=== PATIENT | female | born 1990 | race Caucasian/White ===

== ENCOUNTER 2022-05-13 13:05 | Emergency (ER) | payer SELFPAY ==
[2022-05-13 13:10] VITALS: BP 129/88; PULSE 92; RESP 16; TEMP 36.2; O2SAT 100
--- NOTE | 2022-05-13 13:21 | PC.NURSE ---
Pt and mother to nurses station stating they are leaving. Pt does not want to wait and would like to go to another facility for evaluation. Pt ambulatory out of ED with steady gait. No acute distress noted.
== END 2022-05-13 13:21 | disposition left against medical advice (07) ==
LOC: ANHED 13:32
DX: N93.9 Abnormal uterine and vaginal bleeding, unspecified (principal)
CPT/HCPCS: 99199